=== PATIENT | male | born 1965 | race Caucasian/White ===

== ENCOUNTER 2019-07-24 16:06 | Emergency (ER) | payer OTHER ==
[2019-07-24] MEDS ORDERED: Sodium Chloride 0.9% 10 ML Syringe FLUSH PRN (16:27)
[2019-07-24] MEDS ORDERED: Ketorolac 30 MG/ML SDV IVPUSH ONE (16:27)
--- NOTE | 2019-07-24 16:31 | EDM.PDOC ---
ED HPI GENERAL MEDICAL PROBLEM - General Chief Complaint: Upper Extremity Injury/Pain Stated Complaint: [facility] Time Seen by Provider: 07/24/19 16:18 Source of Information: Reports: Patient History Limitations: Reports: No Limitations - History of Present Illness INITIAL COMMENTS - FREE TEXT/NARRATIVE: Patient is a 54-year-old male who presents to the ED complaining of left shoulder/upper arm pain. Patient was bowling and fell backwards. In attempt to catch himself he places left arm backwards causing the injury. Since then he has increased pain with any palpation and also movement. There is some deformity and swelling noted to the proximal head of the humerus. He has no sensation changes. Denies any pain to the elbow, forearm, wrist, or hand. He did hit his head but there was no loss of consciousness. He denies any head pain , headache, vision changes, nausea vomiting, midline cervical neck pain, neck pain with movement, back pain, numbness or tingling, and/or any additional complaints. He is on no blood thinners. He is not on Plavix. Left Upper Arm Pain Score (Numeric/FACES): 3 - Related Data Allergies Allergy/AdvReac Type Severity Reaction Status Date / Time bee venom protein (honey bee) Allergy Swelling Verified 07/24/19 16:46 Home Meds: Home Meds Actos. 07/24/19 [History] Hydrochlorothiazide. 1 tab PO DAILY 07/24/19 [History] Janumet. 07/24/19 [History] Lisinopril. 1 tab PO DAILY 07/24/19 [History] Lovastatin. 1 tab PO DAILY 07/24/19 [History] Past Medical History Cardiovascular History: Reports: High Cholesterol, Hypertension Endocrine/Metabolic History: Reports: Diabetes, Type II Review of Systems - Review of Systems Review Of Systems: ROS reveals no pertinent complaints other than HPI. ED EXAM, GENERAL - Physical Exam Exam: See Below Exam Limited By: No Limitations General Appearance: Alert, WD/WN, Moderate Distress Eye Exam: Right Eye: Papilledema (None noted), Bilateral Eye: Normal Inspection , Nystagmus, PERRL Ears: Hearing Grossly Normal Nose: Normal Inspection Throat/Mouth: Normal Inspection, Normal Oropharynx, Normal Voice, No Airway Compromise Head: Atraumatic, Normocephalic Neck: Normal Inspection, Supple, Non-Tender, Full Range of Motion Respiratory/Chest: No Respiratory Distress, Normal Breath Sounds, No Accessory Muscle Use, Chest Non-Tender, Wheezing Cardiovascular: Normal Peripheral Pulses, Regular Rate, Rhythm, No Murmur Peripheral Pulses: 2+: Radial (L) GI/Abdominal: Normal Bowel Sounds, Soft, Non-Tender, No Organomegaly, No Distention Back Exam: Normal Inspection, Full Range of Motion. No: Paraspinal Tenderness, Vertebral Tenderness Extremities: Other (No pain along the clavicles. Pain along the anterior aspect of the left shoulder with deformity noted. Pain along humerus as well with no obvious bony abnormalities. No pain with palpation of left elbow, forearm, wrist , or hand. He is able to flex extend his wrist with pain noted. No sensory changes noted.) Neurological: Alert, Oriented, CN II-XII Intact, Normal Cognition, No Motor/ Sensory Deficits Psychiatric: Normal Affect, Normal Mood Skin Exam: Warm, Dry, Intact, Normal Color Course - Vital Signs Last Recorded V/S: Last Vital Signs Temp 97.9 F 07/24/19 16:13 Pulse 108 H 07/24/19 16:13 Resp 20 07/24/19 16:13 BP 90/61 07/24/19 16:13 Pulse Ox 87 L 07/24/19 16:13 - Orders/Labs/Meds Orders: Active Orders 24 hr Category Date Time Status Peripheral IV Care [RC] . DIRECTED Care 07/24/19 16:27 Active Humerus Lt [CR] Stat Exams 07/24/19 16:27 Taken Shoulder Comp Lt [CR] Stat Exams 07/24/19 16:27 Taken Sodium Chloride 0.9% [Saline Flush] Med 07/24/19 16:27 Active 10 ml FLUSH ASDIRECTED PRN Peripheral IV Insertion Adult [OM.PC] Routine Oth 07/24/19 16:27 Ordered Medication Orders Sodium Chloride (Saline Flush) 10 ml FLUSH ASDIRECTED PRN PRN Reason: Keep Vein Open Last Admin: 07/24/19 16:43 Dose: 10 ml Meds: Medications Generic Name Dose Route Start Last Admin Trade Name Freq PRN Reason Stop Dose Admin Sodium Chloride 10 ml 07/24/19 16:27 07/24/19 16:43 Saline Flush FLUSH 10 ml ASDIRECTED PRN Administration Keep Vein Open Discontinued Medications Generic Name Dose Route Start Last Admin Trade Name Freq PRN Reason Stop Dose Admin Hydromorphone HCl 0.5 mg 07/24/19 17:40 07/24/19 17:46 Dilaudid IVPUSH 07/24/19 17:41 0.5 mg ONETIME ONE Administration Ketorolac Tromethamine 30 mg 07/24/19 16:27 07/24/19 16:39 Toradol IVPUSH 07/24/19 16:28 30 mg ONETIME ONE Administration Metoclopramide HCl 5 mg 07/24/19 17:40 07/24/19 17:45 Reglan IVPUSH 07/24/19 17:41 5 mg ONETIME ONE Administration - Re-Assessments/Exams Free Text/Narrative Re-Assessment/Exam: Patient refuses any narcotic meds at this time. Requested a form of ibuprofen IV. IV will be established with Toradol 30 mg IV. Ordered x-ray of the left shoulder and humerus. X-ray of the left shoulder/humerus revealed comminuted fracture to the humeral head. Patient does not have dislocated shoulder. [address] I have spoken with Dr. Villa Orthopedic Surgeon [facility]ences[facility] Campos. He will review x-ray and call back. Patient was administered dilaudid 0.5mg IVP for pain. O2 sats have trended downward to the 80's. NC placed O2 sats 91 %. He is not SOB. He is a 3 to 4 pack a day smoker. 182 Dr. Villa has called back and states this is a nonoperative fracture at this point. Recommends cuff and collar or sling with follow-up visit this week in his office for further evaluation and treatment. We do not have a cuff and collar. Sling will be applied. Patient will be discharged home with pain medications and sling. Return precautions were discussed with the patient. He had no further questions or concerns and agreed with plan. Departure - Departure Time of Disposition: 18:30 Disposition: Home, Self-Care 01 Condition: Good Clinical Impression: Humerus head fracture Qualifiers: Encounter type: initial encounter Fracture type: closed Laterality: left Qualified Code(s): S42.292A - Other displaced fracture of upper end of left humerus, initial encounter for closed fracture - Discharge Information Instructions: Humerus Fracture Treated With Immobilization, Pain Medicine Instructions, [id number] Forms: ED Department Discharge Additional Instructions: Wear the sling as directed. Apply ice to the affected area 4 times a day, 30 units in duration, do not apply ice directly on the skin. Refrain from any painful movements. Utilize Percocet one tab every 6 hours when necessary for pain. May use Zofran 4 mg every 6 hours for nausea. Call and make a appt with Dr. Villa Orthopedic Surgeon with [facility] this coming Thursday. Please return to the E.D. if you develop any new or worsening pain. Do not drive while taking narcotics. [facility], [address], [place] [address] - My Orders Last 24 Hours: My Active Orders 07/24/19 16:27 Peripheral IV Care [RC] . DIRECTED Humerus Lt [CR] Stat Shoulder Comp Lt [CR] Stat Sodium Chloride 0.9% [Saline Flush] 10 ml FLUSH ASDIRECTED PRN Peripheral IV Insertion Adult [OM.PC] Routine - Assessment/Plan Last 24 Hours: My Active Orders 07/24/19 16:27 Peripheral IV Care [RC] . DIRECTED Humerus Lt [CR] Stat Shoulder Comp Lt [CR] Stat Sodium Chloride 0.9% [Saline Flush] 10 ml FLUSH ASDIRECTED PRN Peripheral IV Insertion Adult [OM.PC] Routine
[2019-07-24] MEDS ORDERED: HYDROmorphone 0.5 MG/0.5 ML Syringe IVPUSH ONE (17:40)
[2019-07-24] MEDS ORDERED: Metoclopramide 10 MG/2 ML SDV IVPUSH ONE (17:40)
--- NOTE | 2019-07-25 09:40 | CR ---
Left humerus: Limited two-view study of the left humerus was obtained. Comminuted fracture is seen within the proximal diaphysis as well as fracture extending into the surgical neck of the proximal left humerus. Fracture also extends into the base of the greater tuberosity. Mild displacement is seen measuring up to 7 mm. Distal humerus is poorly seen. Impression: 1. Proximal humeral fracture as described above. Diagnostic code #3
--- NOTE | 2019-07-25 09:40 | CR ---
Left shoulder: Three views of the left shoulder were obtained. Comminuted proximal diaphyseal and metaphyseal fracture are seen within the left humerus. Fracture extends into the base of the greater tuberosity. Mild displacement is seen. Axillary view shows mild lateral angulation. Impression: 1. Proximal humeral fracture as noted above. Diagnostic code #3
== END 2019-07-24 19:12 | disposition home or self-care (01) ==
LOC: JD.ED 16:06
DX: S42.292A Other displaced fracture of upper end of left humerus, initial encounter for closed fracture (principal); E11.9 Type 2 diabetes mellitus without complications; I10 Essential (primary) hypertension; E78.00 Pure hypercholesterolemia, unspecified; Z91.030 Bee allergy status; Z79.899 Other long term (current) drug therapy; W19.XXXA Unspecified fall, initial encounter
CPT/HCPCS: 73030; 73060; 96374; 96375; 99284; J1170; J1885; J2765